=== PATIENT | female | born 1970 | race Caucasian/White ===

== ENCOUNTER 2019-04-24 08:35 | Day surgery (SDC) | payer MEDICARE, OTHER ==
[2019-04-24] MEDS ORDERED: CEFAZOLIN 2 GM/50 ML (PMX) 50 ML IVPB (11:30)
[2019-04-24] MEDS: SOD CHLORIDE 0.9% 1,000 ML IV (11:30)
[2019-04-24 11:47] LABS: ADD MAN DIFF? NO
[2019-04-24 11:49] LABS: ABNORMAL IP MESSAGE 1; BASOPHIL # 0.1 10^3/ul (0.0-0.1); BASOPHILS % 1.4 % (0.0-2.0); EOSINOPHILS # 0.4 10^3/ul (0.0-0.5); EOSINOPHILS % 4.9 % (0.0-7.0); HEMATOCRIT 30.9 % (37.0-47.0); HEMOGLOBIN 8.8 g/dl (12.0-16.0); LYMPHOCYTES % 28.6 % (15.0-51.0); MEAN CORPUSCULAR HEMOGLOBIN 20.1 pg (29.0-33.0); MEAN CORPUSCULAR HGB CONC 28.5 g/dl (32.0-37.0); MEAN CORPUSCULAR VOLUME 70.5 fl (82.0-101.0); MEAN PLATELET VOLUME 9.6 fl (7.4-10.4); MONOCYTE # 0.7 10^3/ul (0.3-0.9); MONOCYTES % 9.3 % (0.0-11.0); NEUTROPHIL # 3.9 10^3/ul (1.6-7.5); NEUTROPHILS % 55.4 % (39.0-77.0); PLATELET COUNT 365 10^3/UL (140-415); RED BLOOD COUNT 4.38 10^6/ul (4.20-5.40)
[2019-04-24 11:49] LABS: WHITE BLOOD COUNT 7.1 10^3/ul (4.8-10.8)
[2019-04-24 11:55] LABS: HOLD TRANSMISSIONS 1; POSITIVE DIFF @See below
[2019-04-24 12:07] LABS: ALANINE AMINOTRANSFERASE 28 IU/L (13-69); ALBUMIN/GLOBULIN RATIO 1.33; ALKALINE PHOSPHATASE 102 IU/L (42-121); ANION GAP 6 (5-13); ASPARTATE AMINO TRANSFERASE 20 IU/L (15-46); BILIRUBIN,INDIRECT 0.2 mg/dl (0-1.1); BILIRUBIN,TOTAL 0.2 mg/dl (0.2-1.3); BLOOD UREA NITROGEN 10 mg/dl (7-20); CALCIUM 9.8 mg/dl (8.4-10.2); CARBON DIOXIDE 23 mmol/L (21-31); CHLORIDE 109 mmol/L (97-110); CREATININE 0.71 mg/dl (0.44-1.00); Estimated GFR > 60 mL/min (>60); GLUCOSE 102 mg/dl (70-220); POTASSIUM 4.5 mmol/L (3.5-5.1); SODIUM 138 mmol/L (135-144)
[2019-04-24 12:13] LABS: PROTIME 14.3 Sec (11.9-14.9); PT RATIO 1.1
[2019-04-24 12:19] LABS: PARTIAL THROMBOPLASTIN TIME 31.2 Sec (23.0-35.0)
[2019-04-24] MEDS ORDERED: PROPOFOL 40 ML (12:22)
[2019-04-24] MEDS ORDERED: LIDOCAINE 2% (SDV) 5 ML INJ (12:22)
[2019-04-24] MEDS ORDERED: ROCURONIUM 50 MG INJ (12:22)
[2019-04-24] MEDS ORDERED: CEFAZOLIN 1 GM INJ (12:22)
[2019-04-24] MEDS ORDERED: MIDAZOLAM 1 MG/ML 2 ML INJ (12:22)
[2019-04-24] MEDS ORDERED: ONDANSETRON 4 MG INJ (12:22)
[2019-04-24] MEDS ORDERED: FENTAnyl 50 MCG/ML VIAL ×2 (12:22→13:15)
[2019-04-24] MEDS ORDERED: hydrALAzine 20 MG INJ IV (12:30)
[2019-04-24] MEDS ORDERED: ONDANSETRON 4 MG INJ IV (12:30)
[2019-04-24] MEDS ORDERED: MEPERIDINE 25 MG INJ IV (12:30)
[2019-04-24] MEDS ORDERED: HYDROmorphONE 1 MG/5 ML IV SYRINGE IV ×2 (12:30)
[2019-04-24] MEDS ORDERED: OXYCODONE/ACETAMINOPHEN (5/325) TAB PO ×2 (12:30)
[2019-04-24] MEDS ORDERED: ALBUTEROL 0.083% (NEB) 2.5 MG/3 ML AMP HHN (12:30)
[2019-04-24] MEDS ORDERED: FENTAnyl 50 MCG/ML VIAL IV ×2 (12:30)
[2019-04-24] MEDS ORDERED: DIPHENHYDRAMINE 50 MG INJ IV (12:30)
[2019-04-24] MEDS ORDERED: LABETALOL HCL 20MG INJ IV (12:30)
[2019-04-24] MEDS ORDERED: morphine 2 MG INJ IV ×2 (12:30)
[2019-04-24] MEDS ORDERED: EPHEDrine 25 MG/5 ML SYG IV (12:30)
[2019-04-24] MEDS ORDERED: PROVENTIL HFA 6.7GM INHALER (12:30)
[2019-04-24] MEDS ORDERED: FAMOTIDINE 20 MG INJ (12:40)
[2019-04-24] MEDS ORDERED: METOCLOPRAMIDE 10 MG INJ (12:40)
[2019-04-24] MEDS ORDERED: DEXAMETHASONE 4 MG/ML 5 ML INJ (12:40)
[2019-04-24] MEDS ORDERED: SUGAMMADEX SODIUM 200 MG/2 ML VIAL IV (13:02)
[2019-04-24] MEDS ORDERED: MAGNESIUM SULFATE 1 GM/D5W 100 ML (13:07)
[2019-04-24] MEDS ORDERED: HYDROCODONE/APAP (7.5/325) TAB PO (13:30)
[2019-04-24] MEDS: HYDROmorphONE 1 MG/5 ML IV SYRINGE IV (13:49)
== END 2019-04-24 15:50 | disposition home or self-care (01) ==
LOC: SDS 08:35
DX: D24.1 Benign neoplasm of right breast (principal); J45.909 Unspecified asthma, uncomplicated; D64.9 Anemia, unspecified; F41.9 Anxiety disorder, unspecified; K21.9 Gastro-esophageal reflux disease without esophagitis
CPT/HCPCS: 19120; 80053; 84703; 85025; 85610; 85730; 88307